=== PATIENT | female | born 2000 | race Caucasian/White ===

== ENCOUNTER 2020-10-07 06:19 | Emergency (ER) | payer BC, SELFPAY ==
[2020-10-07 06:23] VITALS: BP 121/79; PULSE 99; RESP 16; TEMP 36.4; O2SAT 100
[2020-10-07 06:47] LABS: Basophils Percent Auto 0.3 % (0.2-1.2); Eosinophils Absolute Auto 0.3 K/mm3 (0-0.3); Eosinophils Percent Auto 2.6 % (0-4.4); Hematocrit 39.3 % (37.0-47.0); Hemoglobin 12.7 g/dL (12.0-15.0); Immature Granulocyte Absolute 0.04 K/mm3 (0.00-0.031); Immature Granulocyte Percent A 0.3 % (0-0.5); Lymphocytes Absolute Auto 3.55 K/mm3 (0.9-3.2); Lymphocytes Percent Auto 30.3 % (18.3-44.2); Mean Corpuscular HGB Conc 32.3 g/dl (32-36); Mean Corpuscular Hemoglobin 28.6 pg (26-34); Mean Corpuscular Volume 88.5 fl (80-100); Mean Platelet Volume 11.3 fl (7.4-10.4); Monocytes Absolute Auto 0.9 K/mm3 (0.1-0.6); Monocytes Percent Auto 7.3 % (2.6-8.5); Neutrophils Absolute Auto 6.9 K/mm3 (1.3-6.7); Neutrophils Percent Auto 59.2 % (45.5-73.1); Platelet Count Result 251 k/mm3 (150-375); Red Blood Count 4.44 M/mm3 (4.2-5.4); Red Cell Distribution Width 12.8 % (11.5-14.5); White Blood Count 11.7 K/mm3 (4.5-10.0)
[2020-10-07 06:51] LABS: Add Urine Microscopic? YES; Appearance Urine Cloudy (Clear); Bilirubin Urine Negative (Negative); Blood Urine 1+ (Negative); Color Urine Yellow (Yellow); Glucose Urine UA Negative (Negative); Ketones Urine Negative (Negative); Leukocyte Esterase Ur 2+ LEU/UL (Negative); Nitrate Urine Negative (Negative); Protein Urine 1+ mg/dL (Negative); RBC Urine 21-50 /hpf (0-2); Specific Grav Ur 1.014 (1.001-1.035); Squamous Epithelial Cell Urine Moderate /hpf (Few); Urobilinogen Urine Negative mg/dL (<2.0); WBC Urine >75 /hpf
[2020-10-07 07:04] LABS: Anion Gap 7 mmol/L (8-16); Blood Urea Nitrogen 10 mg/dL (7-17); Calcium 9.2 mg/dL (8.4-10.2); Carbon Dioxide 27 mmol/L (22-30); Chloride 103 mmol/L (98-107); Estimated CRCL calculation 113 ml/min; Estimated Glomerular Filt Rate > 60; Glucose 91 mg/dL (65-105); Potassium 3.9 mmol/L (3.4-5.0); Sodium 137 mmol/L (137-145)
[2020-10-07] MEDS: KETOROLAC 30 MG/ML VIAL (*BKC) IV PUSH (07:45)
--- NOTE | 2020-10-07 07:47 | ED.FEMALEGU ---
HPI - Female Genitourinary General Chief complaint: Urogenital-Female Stated complaint: R side abd pain, difficulty urinating Time Seen by Provider: 10/07/20 07:35 Source: patient Mode of arrival: ambulatory Limitations: no limitations History of Present Illness HPI Narrative: 20 years old presents with dysuria for the last 3 days, right flank pain yesterday, intermittent nausea, denies any fever, chills, vomiting, abdominal pain. Related Data Allergies Allergy/AdvReac Type Severity Reaction Status Date / Time No Known Allergies Allergy Verified 10/07/20 07:57 Review of Systems Review of Systems: Narrative: CONSTITUTIONAL: Denies fever, chills, or sweats. EYES: Denies visual changes, redness, or discharge. ENT: Denies rhinorrhea, congestion, sore throat, or otalgia. CARDIOVASCULAR: Denies chest pain, palpitations, or edema. RESPIRATORY: Denies cough or dyspnea. GASTROINTESTINAL: Denies abdominal pain, nausea, vomiting, or diarrhea. GENITOURINARY: Denies dysuria or hematuria. SKIN: Denies rash or itching. MUSCULOSKELETAL: Denies back pain, joint pain, or myalgia. NEUROLOGIC: Denies headache, numbness, or weakness. PSYCHIATRIC: Denies anxiety or depression. Exam Narrative: Exam Narrative: General appearance: Well-developed, well-nourished Skin: Normal color Head: Normocephalic, nontraumatic Eyes: Clear conjunctiva ENT: Oropharynx normal, ears normal, nose normal Neck: Supple, nontender Chest and respiratory: Airway patent, no respiratory distress, no accessory muscle use Heart: Regular rate/rhythm Abdomen: Soft, nontender, no organomegaly, quiet bowel sounds, mild tenderness right flank Vascular: Normal peripheral pulses, normal capillary refill. Musculoskeletal: Normal range of motion, nontender back Neurologic: Alert and oriented ?3, RECENTERER is normal as tested, no gross motor deficit Course Course Emergency Course: Improving Vital Signs Vital signs: Vital Signs Temperature 36.4 C 10/07/20 06:23 Pulse Rate 99 10/07/20 06:23 Respiratory Rate 16 10/07/20 06:23 Blood Pressure 121/79 10/07/20 06:23 Pulse Oximetry 100 10/07/20 06:23 Temperature 36.4 C 10/07/20 06:23 Pulse Rate 66 10/07/20 07:56 Respiratory Rate 14 10/07/20 07:56 Blood Pressure 113/71 10/07/20 07:56 Pulse Oximetry 99 10/07/20 07:56 MDM - Female Genitourinary MDM Narrative Medical decision making narrative: Dysuria and right flank pain. Urinary tract infection is my concern. Labs, UA ordered. Work-up showed urinary tract infection, Rocephin 1 g IV, Toradol 30 mg IV ordered. Further plan to follow Differential Diagnosis Differential diagnosis: Likely urinary tract infection and cystitis Lab Data Result diagrams: 10/07/20 06:39 10/07/20 06:39 Labs: Lab Results 10/07/20 10/07/20 10/07/20 Range/Units 06:38 06:39 06:39 WBC 11.7 H (4.5-10.0) K/mm3 RBC 4.44 (4.2-5.4) M/mm3 Hgb 12.7 (12.0-15.0) g/dL Hct 39.3 (37.0-47.0) % MCV 88.5 (80-100) fl MCH 28.6 (26-34) pg MCHC 32.3 (32-36) g/dl RDW 12.8 (11.5-14.5) % Plt Count 251 (150-375) k/mm3 MPV 11.3 H (7.4-10.4) fl Immature Gran % (Auto) 0.3 (0-0.5) % Neut % (Auto) 59.2 (45.5-73.1) % Lymph % (Auto) 30.3 (18.3-44.2) % [place] % (Auto) 7.3 (2.6-8.5) % Eos % (Auto) 2.6 (0-4.4) % Baso % (Auto) 0.3 (0.2-1.2) % Lymph # (Auto) 3.55 H (0.9-3.2) K/mm3 [place] # (Auto) 0.9 H (0.1-0.6) K/mm3 Eos # (Auto) 0.3 (0-0.3) K/mm3 Baso # (Auto) 0.0 (0.0-0.1) K/mm3 Abs Immat Gran (auto) 0.04 H (0.00-0.031) K/mm3 Absolute Neuts (auto) 6.9 H (1.3-6.7) K/mm3 Absolute Nucleated R
[2020-10-07 07:56] VITALS: BP 113/71; PULSE 66; RESP 14; O2SAT 99
[2020-10-07 08:42] VITALS: BP 116/73; PULSE 69; RESP 15; O2SAT 98
== END 2020-10-07 08:43 | disposition home or self-care (01) ==
PROVIDERS: Emergency Medicine; Emergency Provider Emergency Medicine
DX: N39.0 Urinary tract infection, site not specified (principal)
CPT/HCPCS: 36415; 80048; 81001; 81025; 85025; 87077; 87086; 87088; 96365; 96375; 99284; J0696; J1885

== ENCOUNTER 2022-11-09 00:57 | Emergency (ER) | payer BC, SELFPAY ==
[2022-11-09 01:00] VITALS: BP 124/75; PULSE 110; RESP 14; TEMP 36.4; O2SAT 98
[2022-11-09] MEDS: FLUORESCEIN SOD 1 MG/STRIP EACH EYE (03:29)
--- NOTE | 2022-11-09 03:29 | PC.NURSE ---
Pt stated she does not want fluids given to her as she is ready to go home and will drink pedialyte and f/u with her OB tomorrow. DANIELLE Garg, made aware and okay with this. Awaiting dc papers.
--- NOTE | 2022-11-09 03:32 | ED.EAR ---
HPI - Ear Problem General Chief complaint: Ear <SHELLY Lee Last Filed: 11/09/22 04:23> Stated complaint: URI <SHELLY Lee Last Filed: 11/09/22 04:23> Time Seen by Provider: 11/09/22 03:24 <SHELLY Lee Last Filed: 11/09/22 04:23> History of Present Illness HPI Narrative: 22-year-old female here for evaluation of left eye irritation and right ear pain over the past 3 days, COVID-positive as of 5 days ago. States that her left eye is itching and has had thick white discharge as well. She does wear contact lenses. Denies any fevers or chills, nausea or vomiting, abdominal pain, vaginal bleeding. <SHELLY Lee Last Filed: 11/09/22 04:23> Related Data Allergies/adverse reactions: Allergies Allergy/AdvReac Type Severity Reaction Status Date / Time No Known Allergies Allergy Verified 10/07/20 07:57 <SHELLY Lee Last Filed: 11/09/22 04:23> Review of Systems Review of Systems: Gen.: Denies fevers or chills Eyes: Reports left eye irritation ENT: Reports right ear pain Respiratory: Denies shortness of breath or cough CV: Denies chest pain or palpitations GI: Denies abdominal pain nausea, emesis or diarrhea denies burning, urgency, frequency or hematuria Musculoskeletal: Denies back pain or muscle pain Neuro: Denies numbness, tingling, weakness or focal weakness Skin: Denies rash Except as documented, all other systems reviewed and negative <SHELLY Lee Last Filed: 11/09/22 04:23> Exam Narrative: APPEARANCE: Well appearing, no pain in distress, well-nourished. Head: Normocephalic and atraumatic. EYES: Fluorescein exam reveals no discrete area of uptake. Pupils are equal round and reactive to light, no pain with EOMs. NOSE: No nasal drainage EARS: Right TM is diffusely cloudy and bulging with a bulla at the 10 o'clock position THROAT: Oropharynx is clear. Mucous membranes are moist. NECK: Supple. No adenopathy, no masses. RESPIRATORY: Airway patent, respirations nonlabored. Clear to auscultation bilaterally, no rales, rhonchi, wheezing. CARDIOVASCULAR: Regular rate and rhythm without murmurs, rubs, or gallops. ABDOMINAL: Gravid uterus. Normoactive bowel sounds. Soft, nontender, nondistended. No rebound tenderness or guarding. MUSCULOSKELETAL: Extremities are warm and well-perfused. Moves all extremities well. No edema. NEURO: Normal speech. No focal neurologic deficits. SKIN: Skin is warm and dry. No rashes. PSYCHIATRIC: Normal affect/mood. <Britany Carrera PA-C - Last Filed: 11/09/22 04:23> Course WET SUIT GLUER/PA Physician Supervision This is a was performed by both a physician and an APC. I performed all aspects of the MDM as documented w/ the following additions: 22-year-old female presenting with conjunctivitis and evidence of bullous myringitis. She is a contact user. Discharged with appropriate antibiotics and follow-up. All questions answered. Patient in agreement w/ disposition. <Zachary Quintero MD - Last Filed: 11/09/22 04:26> Vital Signs Vital signs: Vital Signs Temperature 97.6 F 11/09/22 01:00 Pulse Rate 110 H 11/09/22 01:00 Respiratory Rate 14 11/09/22 01:00 Blood Pressure 124/75 11/09/22 01:00 Pulse Oximetry 98 11/09/22 01:00 Oxygen Delivery Room Air 11/09/22 01:00 Temperature 97.6 F 11/09/22 01:00 Pulse Rate 110 H 11/09/22 01:00 Respiratory Rate 14 11/09/22 01:00 Blood Pressure 124/75 11/09/22 01:00 Pulse Oximetry 98 11/09/22 01:00 Oxygen Delivery Room Air 11/09/22 01:00 <Britany Carrera PA-C - Last Filed: 11/09/22 04:23> Vital Signs Temperature 97.6 F 11/09/22 01:00 Pulse Rate 110 H 11/09/22 01:00 Respiratory Rate 14 11/09/22 01:00 Blood Pressure 124/75 11/09/22 01:00 Pulse Oximetry 98 11/09/22 01:00 Oxygen Delivery Room Air 11/09/22 01:00 Temperature 97.6 F 11/09/22 0
[2022-11-09 04:54] VITALS: BP 112/78; PULSE 95; RESP 18; O2SAT 99
== END 2022-11-09 04:50 | disposition home or self-care (01) ==
PROVIDERS: Emergency Provider Emergency Medicine; PCP Emergency Medicine
DX: O99.891 Other specified diseases and conditions complicating pregnancy (principal); H73.011 Bullous myringitis, right ear; H10.89 Other conjunctivitis; Z86.16 Personal history of COVID-19; Z3A.25 25 weeks gestation of pregnancy
CPT/HCPCS: 99283